=== PATIENT | female | born 1995 | race Caucasian/White ===

== ENCOUNTER 2018-01-10 11:22 | Observation (INO) | payer OTHER ==
--- NOTE | 2018-01-10 12:15 | PDOC ---
History of Present Illness - General Chief Complaint: Pain, Acute Stated Complaint: ABD PAIN Time Seen by Provider: 01/10/18 12:11 - History of Present Illness Initial Comments: 01/10/18 12:14 22 yo F with no significant pmh who p/w epigastria abdominal pain x 2 days. Patient reports acute onset of spasmodic, unremitting, pressure-type epigastric abdominal pain beginning yesterday morning with no identifiable triggers. Denies h/o similar pain. Pain worse with PO intake. Decreased PO intake. Pain not alleviated with OTC baking soda and megan seltzer. Reports h/o rectal bleed x 2 months ago, with subsequent sigmoidoscopy ( unremarkable), and + H.pylori testing. Pt. started on 2 week course of triple therapy, but did not complete medication. Discontinued med use x 3 days ago, felt that she didn't need it because no rectal bleeding. Patient with one day of Amoxicillin 500 mg BID, and Clarithromycin 500 mg BID left. Normal bowel habits. GI apt. next month with Dr. Blum. Patient denies N/V, F,C, CP, SOB, urinary complaints, hematuria, BPR, diarrhea , constipation, lightheadedness, weakness, sensory changes. PMHx: as noted above. H/o appendectomy, and x 2. H/o unremarkable sigmoidoscopy. Denies h/o ACS, stent placement, CABG. Denies h/o endoscopy. ROS: as noted SHx: Denies Etoh, tobacco, IVDA. Allergies: NKDA Dr. Josemanuel Blum GI. Past History - Past Medical History Allergies/Adverse Reactions: Allergies Allergy/AdvReac Type Severity Reaction Status Date / Time No Known Allergies Allergy Verified 01/10/18 11:48 Home Medications: Ambulatory Orders Amox-Tr/K Cl [Augmentin - 875Mg Tablet] 1 tab PO BID #20 tablet 05/04/16 Amox-Tr/K Cl [Augmentin - 875Mg Tablet] 1 tab PO BID #20 tablet 05/04/16 Asthma: Yes (last attack 9 years ago) Cancer: No Cardiac Disorders: No COPD: No Diabetes: No HTN: No Seizures: No Thyroid Disease: No - Surgical History Appendectomy: Yes - Reproductive History (#): 0 Para: 0 - Immunization History Immunization Up to Date: Yes - Suicide/Smoking/Psychosocial Hx Smoking History: Never smoked Have you smoked in the past 12 months: No Number of Cigarettes Smoked Daily: 0 Hx Alcohol Use: No Drug/Substance Use Hx: No Substance Use Type: None Hx Substance Use Treatment: No Review of Systems - Review of Systems Comments:: 01/10/18 12:15 GENERAL/CONSTITUTIONAL: No fever or chills. No weakness. HEAD, EYES, EARS, NOSE AND THROAT: No change in vision. No ear pain or discharge. No sore throat. CARDIOVASCULAR: No chest pain or shortness of breath RESPIRATORY: No cough, wheezing, or hemoptysis. GASTROINTESTINAL: + Abdominal pain. No nausea, vomiting, diarrhea or constipation. GENITOURINARY: No dysuria, frequency, or change in urination. MUSCULOSKELETAL: No joint or muscle swelling or pain. No neck or back pain. SKIN: No rash NEUROLOGIC: No headache, vertigo, loss of consciousness, or change in strength/ sensation. ENDOCRINE: No increased thirst. No abnormal weight change HEMATOLOGIC/LYMPHATIC: No anemia, easy bleeding, or history of blood clots. ALLERGIC/IMMUNOLOGIC: No hives or skin allergy. *Physical Exam - Vital Signs Last Vital Signs Temp Pulse Resp BP Pulse Ox 98.2 F 121 H 18 144/90 100 01/10/18 11:45 01/10/18 11:45 01/10/18 11:45 01/10/18 11:45 01/10/18 11:45 - Physical Exam Comments: 01/10/18 12:15 GENERAL: Awake, alert, and fully oriented, in no acute distress HEAD: No signs of trauma, normocephalic, atraumatic EYES: PERRLA, EOMI, sclera anicteric, conjunctiva clear ENT:Hearing grossly normal, nares patent, oropharynx clear without exudates. Moist mucosa NECK: Normal ROM, supple, no lymphadenopathy, JVD, or masses LUNGS: No distress, speaks full sentences, clear to auscultation bilaterally HEART: Regular rate and rhythm, normal S1 and S2, no murmurs, rubs or gallops, peripheral pulses normal and equal bilaterally. ABDOMEN:+ Abdominal/epigastirc ttp. Soft, normoactive bowel sounds. No guarding, no rebound, no rigidity. No masses. Neg CVA ttp. EXTREMITIES : Normal inspection, Normal range of motion, no edema. No clubbing or cyanosis. ED Treatment Course - LABORATORY CBC & Chemistry Diagram: 01/10/18 12:35 01/10/18 12:35 Medical Decision Making - Medical Decision Making 01/10/18 12:36 22 yo F with no significant pmh who p/w epigastria abdominal pain x 2 days. HR 121, vitals otherwise wnl, AF, A&OX3.+ Epigastria ttp. Will consider esophagitis , gastritis, biliary disease, pancreatitis, gastroenteritis. Low suspicion colitis, diverticulitis, AAA, Ao dissection, ACS/NC. Pain control, hydration, reassess. ED Course: CBC,CMP, HCG, UA, LIPASE Maloox, Carafate, Famotidine, NS 01/10/18 13:50 CBC 01/10/18 14:23 RUQ U/S: 4mm polyp post wall of GB. Otherwise unremarkable Bili 2.6. 0.6~2016 UA: Neg 01/10/18 14:[address] Josemanuel Blum answering service [phone]. Awaiting call back. 01/10/18 15:10 Patient with cont'd pain. Morphine CT AP: 1.9 cm hypdodensity of Spleen likely hemangioma. CTAP otherwise unremarkable 01/10/18 19:[address] Cuevas. Pt. to be seen in AM 01/10/18 20:06 Patient endorsed to medicine team. Admit to Dr. Lord. *DC/Admit/Observation/Transfer Diagnosis at time of Disposition: Epigastric abdominal pain - Discharge Dispostion Condition at time of disposition: Stable - Referrals - Patient Instructions - Post Discharge Activity - Attestations Physician Attestion: 01/10/18 12:15 I attest to the information provided in this note.
[2018-01-10] MEDS ORDERED: MAG HYDROX/AL HYDROX/SIMETH 30 ML UNIT-DOSE CUP PO ONE (12:27)
[2018-01-10] MEDS ORDERED: FAMOTIDINE 20 MG/50 ML IVPB 20 MG/50 ML MG IVPB ONE ×2 (12:27→13:18)
[2018-01-10 12:47] LABS: BASO % 0.7 % (0-2.0); EOS % 0.9 % (0-4.5); HEMATOCRIT 41.4 % (32.4-45.2); HEMOGLOBIN 13.7 GM/dL (10.7-15.3); LYMPH % 25.2 % (8-40); MCHC 33.1 g/dl (32.0-36.0); MEAN CELL VOLUME 90.8 fl (80-96); MEAN PLT VOLUME 8.5 fl (7.5-11.1); MONO % 6.7 % (3.8-10.2); NEUT % 66.5 % (42.8-82.8); PLATELET COUNT 257 K/MM3 (134-434); RBC 4.56 M/mm3 (3.60-5.2); RDW 13.2 % (11.6-15.6); WHITE BLOOD COUNT 5.7 K/mm3 (4.0-10.0)
[2018-01-10] MEDS ORDERED: MAG HYDROX/AL HYDROX/SIMETH 30 ML UNIT-DOSE CUP ONE (13:17)
[2018-01-10] MEDS ORDERED: SUCRALFATE 1 GM TABLET (FP) ONE (13:17)
[2018-01-10 13:36] LABS: ALBUMIN 4.6 g/dl (3.4-5.0); ALK PHOS 64 U/L (45-117); ANION GAP 10 MMOL/L (8-16); BILIRUBIN,TOTAL 2.6 mg/dL (0.2-1); BLOOD UREA NITROGEN 10 mg/dL (7-18); CALCIUM 9.4 mg/dL (8.5-10.1); CHLORIDE 106 mmol/L (98-107); CO2 23 mmol/L (21-32); CREATININE 0.6 mg/dL (0.55-1.3); GLUCOSE,RANDOM 99 mg/dL (74-106); POTASSIUM 3.8 mmol/L (3.5-5.1); SGOT/AST 20 U/L (15-37); SGPT/ALT 40 U/L (13-61); SODIUM 139 mmol/L (136-145); TOT PROT 8.3 g/dl (6.4-8.2)
[2018-01-10 13:57] LABS: LIPASE 155 U/L (73-393)
[2018-01-10 14:18] LABS: URINE APPEARANCE CLEAR; URINE BILIRUBIN NEGATIVE (<2.0 mg/dL); URINE COLOR STRAW; URINE GLUCOSE (UA) NEGATIVE (NEGATIVE); URINE KETONE NEGATIVE (NEGATIVE); URINE LEUK ESTERASE NEGATIVE (NEGATIVE); URINE NITRITE NEGATIVE (NEGATIVE); URINE PROTEIN 1+ (NEGATIVE); URINE UROBILINOGEN NEGATIVE mg/dL (0.2-1.0)
[2018-01-10 14:33] LABS: EPI CELLS RARE /HPF (FEW)
--- NOTE | 2018-01-10 14:57 | PDOC ---
Attending Attestation - Resident Resident Name: Jaskaran Ross - ED Attending Attestation I have performed the following: I have examined & evaluated the patient, The case was reviewed & discussed with the resident, I agree w/resident's findings & plan, Exceptions are as noted - HPI HPI: 01/10/18 16:50 The patient is a 22 year old female, with a significant past medical history of H Pylori (4 months ago s/p sigmoidoscopy), who presents to the emergency department with 2 days of intermittent epigastric pain exacerbated by eating. She states she completed a course of triple antibiotics about a month ago for H.Pylori with the exception of the last dose. No treatments tried. The patient denies chest pain, shortness of breath, headache and dizziness. The patient denies fever, chills, nausea, vomit, diarrhea and constipation. The patient denies dysuria, frequency, urgency and hematuria. No dark stools. Allergies: NKDA Past surgical history: x 2, appendectomy Social history: Denies ETOH. Denies tobacco. - Physicial Exam PE: 01/10/18 16:51 GENERAL: Awake, alert, and fully oriented, in no acute distress EYES: PERRLA, EOMI, sclera anicteric, conjunctiva clear ENT: Oropharynx clear without exudates. Moist mucosa NECK: Normal ROM, supple, no lymphadenopathy, JVD, or masses LUNGS: Breath sounds equal, clear to auscultation bilaterally. No wheezes, and no crackles HEART: Regular rate and rhythm, normal S1 and S2, no murmurs, rubs or gallops ABDOMEN: Soft, +epigastric ttp, negative grimes sign, no distention. Normoactive bowel sounds. No guarding, no rebound. No masses EXTREMITIES: Normal range of motion, no edema. No cords, erythema, or tenderness NEUROLOGICAL: Normal speech, cranial nerves intact, 5/5 strength in all 4 extremities, normal sensation to light touch in all 4 extremities, normal gait SKIN: Warm, Dry, normal turgor, no rashes or lesions noted. - Medical Decision Making 01/10/18 14:11 22yo F hx h.pylori s/p triple therapy presents to the ED with 2 days of intermittent epigastric pain. Vitals wnl. Exam with epigastric ttp. DIBNLT gastritis vs pancreatitis vs cholecystitis vs colitis. Plan for labs, US, pain control, reassess. 01/10/18 15:14 US with GB polyp, no other findings. Labs wnl. UA negative, UPT neg. On reassessment, pt states no improvement in pain, remains tender in epigastric area. At this time decision to get CTAP. Pt given morphine for pain control. Given prolonged LOS, pt placed on ED obs, case discussed with Dr. Ramirez 01/10/18 19:27 CTAP with negative pathology, despite multiple medications including morphine, pt reports persistent pain Only abnormality thus far in work up is elevated bili to 2.6, which is newly elevated compared to 0.6 last year Unclear what is causing this, pt may need ERCP but would be helpful to know if it is direct vs indirect, lab added by hospitalist team Case discussed with Dr. Beck, pt to be evaluated tomorrow Case admitted to hospitalist team for further mgmt Case discussed in detail with admitting physician including history, physical exam and ancillary studies. Admitting physician has assumed care for the patient, will follow all pending diagnostics and will complete the evaluation and treatment.
[2018-01-10] MEDS ORDERED: morphine CARPU-JECT 4 MG/1 ML DISP.SYRIN IVPUSH ONE (15:01)
[2018-01-10] MEDS ORDERED: MORPHINE SULFATE 2 MG/ML VIAL ONE (16:04)
[2018-01-10] MEDS ORDERED: SUCRALFATE 1 GM TABLET (FP) PO ONE ×2 (16:17→22:00)
--- NOTE | 2018-01-10 20:18 | PN ---
Teaching Attending Note Name of Resident: Dinesh Arellano ATTENDING PHYSICIAN STATEMENT I saw and evaluated the patient. I reviewed the resident's note and discussed the case with the resident. I agree with the resident's findings and plan as documented. SUBJECTIVE: Patient is a 22 year old woman with history of preeclampsia, 2 C-sections and appendectomy who presents with epigastric abdominal pain for 2 days. Patient reports acute onset of spasmodic, unremitting, pressure-type epigastric abdominal pain beginning yesterday morning with no identifiable triggers. Pain worse with PO intake. Decreased PO intake. Pain not alleviated with OTC baking soda and megan seltzer. Reports rectal bleed 2 months ago, with subsequent sigmoidoscopy (unremarkable), and + H.pylori testing. Was started on 2 week course of triple therapy, but did not complete medication. Discontinued meds 3 days ago - felt that she didn't need it because no rectal bleeding. Patient with one day of Amoxicillin 500 mg BID, and Clarithromycin 500 mg BID left. Normal bowel habits. GI appointment next month with Dr. Blum. OBJECTIVE: Alert Vital Signs Period Temp Pulse Resp BP Sys/Soler Pulse Ox Last 24 Hr 98.2 F 121 18 144/90 100 HEENT: No Jaundice, eye redness or discharge, PERRLA, EOMI. Normocephalic, atraumatic. External ears are normal and hearing is grossly intact. No nasal discharge. Neck: Supple, nontender. No palpable adenopathy or thyromegaly. No JVD Chest: Good effort. Clear to auscultation and percussion. Heart: Regular. No S3, rub or murmur Abdomen: Not distended, soft, tender epigastrium and no HSM. No rebound or guarding. Normoactive bowel sounds. Ext: Peripheral pulses intact. No leg edema. Skin: Warm and dry. No petechiae, rash or ecchymosis. Neuro: Alert. Oriented x3. CN 2-12 grossly intact. Sensation grossly intact in all four extremities and DTR are symmetric. Home Medications Medication Instructions Recorded Amox-Tr/K Cl [Augmentin - 875Mg 1 tab PO BID #20 tablet 05/04/16 Tablet] Amox-Tr/K Cl [Augmentin - 875Mg 1 tab PO BID #20 tablet 05/04/16 Tablet] Abnormal Lab Results 01/10/18 01/10/18 12:35 14:00 Total Bilirubin 2.6 H Total Protein 8.3 H Ur Specific [place] 1.005 L Urine Protein 1+ H ASSESSMENT AND PLAN: 1. Abdominal Pain - Etiology unclear, but exacerbation by food suggests PUD or gastritis. Elevated bilirubin is unexplained. CT abdomen shows splenic hemangioma and sonogram shows a gall bladder polyp. Will get hepatitis serology , urine toxicology and GI consult to consider EGD. Continue IV D5LR, pain control with IV morphine, give IV protonix, avoid NSAIDS and keep her NPO 2. DVT prophylaxis - Lovenox 40 mg SQ q 24 hours. 3. Advance directives - Full code
[2018-01-10] MEDS ORDERED: ACETAMINOPHEN 325 MG TABLET (FP) PO PRN (20:54)
--- NOTE | 2018-01-10 21:08 | HP ---
CHIEF COMPLAINT: Abdominal Pain PCP: GI: Dr. Blum HISTORY OF PRESENT ILLNESS: 22 yo female with PMH Asthma and Preeclampsia during her admitted with complaint of epigastric abdominal pain. She states that the pain began yesterday afternoon and has been fairly constant since then. The pain does not radiate. She states that nothing relieves the pain, she tried megan-seltzer at home. The pain is worsened following PO intake, and thus she is minimally tolerating PO presently. She has never had any pain like this before, but of note she did have some episodes of rectal bleeding two months ago and was seen by Dr. Blum as an outpatient. A sigmoidoscopy was done which did not reveal any pathology at that time. She was found to be H. pylori positive and was given triple therapy which she took for 2 weeks, which she states she completed around 3 or 4 weeks ago. Since that time she has had no further episodes of rectal bleeding and has not had any abdominal pain until this episode began yesterday afternoon. She denies any fevers, chills, vomiting, constipation, Urinary frequency, hematuria, or dysuria. Of note she does endorse some loose stools recently which she attributes to her recent antibiotic use, though she did have one episode of loose stool today and has not taken abx in at least 3 weeks. ER course was notable for: (1) CT and US with no signs of pancreatitis or cholecystitis (2) Morphine (4mg + 2 mg), Carafate, Mylanta, pepcid, with no relief (3) GI consulted Recent Travel: none PAST MEDICAL HISTORY: Asthma - last inhaler use at least 3 months ago Preeclampsia during PAST SURGICAL HISTORY: Appendectomy X 2, one living child, one Social History: Smoking: Denies Alcohol: Denies Drugs: Denies Family History: Allergies No Known Allergies Allergy (Verified 01/10/18 11:48) HOME MEDICATIONS: Home Medications Medication Instructions Recorded Amox-Tr/K Cl [Augmentin - 875Mg 1 tab PO BID #20 tablet 05/04/16 Tablet] Amox-Tr/K Cl [Augmentin - 875Mg 1 tab PO BID #20 tablet 05/04/16 Tablet] REVIEW OF SYSTEMS CONSTITUTIONAL: Absent: fever, chills, diaphoresis, generalized weakness, malaise, loss of appetite, weight change HEENT: Absent: rhinorrhea, nasal congestion, throat pain, throat swelling, difficulty swallowing, mouth swelling, ear pain, eye pain, visual changes CARDIOVASCULAR: Absent: chest pain, syncope, palpitations, irregular heart rate, lightheadedness , peripheral edema RESPIRATORY: Absent: cough, shortness of breath, dyspnea with exertion, orthopnea, wheezing, stridor, hemoptysis GASTROINTESTINAL: abdominal pain, diarrhea Absent: , abdominal distension, nausea, vomiting, constipation, melena, hematochezia GENITOURINARY: Absent: dysuria, frequency, urgency, hesitancy, hematuria, flank pain, genital pain MUSCULOSKELETAL: Absent: myalgia, arthralgia, joint swelling, back pain, neck pain SKIN: Absent: rash, itching, pallor HEMATOLOGIC/IMMUNOLOGIC: Absent: easy bleeding, easy bruising, lymphadenopathy, frequent infections ENDOCRINE: Absent: unexplained weight gain, unexplained weight loss, heat intolerance, cold intolerance NEUROLOGIC: Absent: headache, focal weakness or paresthesias, dizziness, unsteady gait, seizure, mental status changes, bladder or bowel incontinence PSYCHIATRIC: Absent: anxiety, depression, suicidal or homicidal ideation, hallucinations. PHYSICAL EXAMINATION Vital Signs - 24 hr 01/10/18 01/10/18 01/10/18 11:45 17:15 20:40 Temperature 98.2 F 97.8 F 97.9 F Pulse Rate 121 H Pulse Rate [ 65 67 Right Radial] Respiratory 18 18 18 Rate Blood Pressure 144/90 Blood Pressure 126/71 122/66 [Right Arm] O2 Sat by Pulse 100 100 100 Oximetry (%) GENERAL: A&O, no acute distress HEAD: Normocephalic, atraumatic. EYES: PERRL, no scleral icterus EARS, NOSE, THROAT: oropharynx clear without exudates. Moist mucous membranes. NECK: supple without lymphadenopathy LUNGS: CTA b/l, no crackles or wheezes HEART: Regular rate and rhythm, normal S1 and S2 without murmur ABDOMEN: Soft, tender to palpation in the epigastric region, normoactive bowel sounds MUSCULOSKELETAL: No bony deformities or tenderness. EXTREMITIES: 2+ pulses, warm, well-perfused. No peripheral edema. NEUROLOGICAL: Cranial nerves II-XII grossly intact. Normal speech. PSYCHIATRIC: Cooperative. Good eye contact. Appropriate mood and affect. Laboratory Results - last 24 hr 01/10/18 01/10/18 01/10/18 12:35 12:35 12:35 WBC 5.7 RBC 4.56 Hgb 13.7 Hct 41.4 D MCV 90.8 MCH 30.0 MCHC 33.1 RDW 13.2 D Plt Count 257 MPV 8.5 Absolute Neuts (auto) 3.8 Neutrophils % 66.5 Lymphocytes % 25.2 D Monocytes % 6.7 Eosinophils % 0.9 D Basophils % 0.7 Nucleated RBC % 0 Sodium 139 Potassium 3.8 Chloride 106 Carbon Dioxide 23 Anion Gap 10 BUN 10 Creatinine 0.6 Creat Clearance w eGFR > 60 Random Glucose 99 Calcium 9.4 Total Bilirubin 2.6 H AST 20 ALT 40 Alkaline Phosphatase 64 Total Protein 8.3 H Albumin 4.6 Lipase 155 Cancelled Urine Color Urine Appearance Urine pH Ur Specific [place] Urine Protein Urine Glucose (UA) Urine Ketones Urine Blood Urine Nitrite Urine Bilirubin Urine Urobilinogen Ur Leukocyte Esterase Urine WBC (Auto) Urine RBC (Auto) Ur Epithelial Cells Urine HCG, Qual 01/10/18 01/10/18 14:00 14:00 WBC RBC Hgb Hct MCV MCH MCHC RDW Plt Count MPV Absolute Neuts (auto) Neutrophils % Lymphocytes % Monocytes % Eosinophils % Basophils % Nucleated RBC % Sodium Potassium Chloride Carbon Dioxide Anion Gap BUN Creatinine Creat Clearance w eGFR Random Glucose Calcium Total Bilirubin AST ALT Alkaline Phosphatase Total Protein Albumin Lipase Urine Color Straw Urine Appearance Clear Urine pH 6.0 Ur Specific [place] 1.005 L Urine Protein 1+ H Urine Glucose (UA) Negative Urine Ketones Negative Urine Blood Negative Urine Nitrite Negative Urine Bilirubin Negative Urine Urobilinogen Negative Ur Leukocyte Esterase Negative Urine WBC (Auto) 1 Urine RBC (Auto) <1 Ur Epithelial Cells Rare Urine HCG, Qual Negative ASSESSMENT/PLAN: 22 yo female with PMH Asthma and Preeclampsia during her admitted with complaint of unrelenting epigastric abdominal pain. Abdominal Pain -recent H. pylori infxn noted, could possibly be new or worsening gastric ulcer -ED course noted, morphine, carafate, mylanta, pepcid without relief -CT and US noted. 1.9 cm hypodensity likely hemangioma on her spleen, 2.2 cm cyst on Left ovary, no signs of cholecystitis or pancreatitis -GI consulted, will await further recommendations -Tbili elevated 2.6 -Direct bili ordered -Hepatitis panel -Urine Tox -Pt will likely need EGD -Morphine 2mg IV Q4 PRN -Tylenol 650 mg PO Q6 PRN -Avoid NSAIDs -Incentive spirometry -NPO except meds, can advance tolerated pending GI evaluation Asthma -Stable, very rarely requires rescue inhaler DVT Prophylaxis -Lovenox 40 mg SQ Daily FEN -Fluids: D5LR @ 100 cc/hr -Electrolytes: BMP in AM -Nutrition: NPO Disposition Observation Visit type - Emergency Visit Emergency Visit: Yes ED Registration Date: 01/10/18 Care time: The patient presented to the Emergency Department on the above date and was hospitalized for further evaluation of their emergent condition. - New Patient This patient is new to me today: Yes Date on this admission: 01/11/18 - Critical Care Critical Care patient: No
[2018-01-10] MEDS ORDERED: PANTOPRAZOLE 40 MG TABLET (FP) PO ONE (21:35)
[2018-01-10] MEDS: DEXTROSE 5%-LACTATED RINGERS 1,000 ML IV SCH (23:28)
[2018-01-11 00:44] VITALS: BMI 23.0
[2018-01-11] MEDS: MORPHINE SULFATE 2 MG/ML VIAL IVPUSH PRN ×2 (02:33→06:49)
[2018-01-11 02:34] VITALS: TEMP 98
[2018-01-11 07:28] LABS: HEMATOCRIT 37.1 % (32.4-45.2); HEMOGLOBIN 12.4 GM/dL (10.7-15.3); MCH 30.3 pg (25.7-33.7); MCHC 33.4 g/dl (32.0-36.0); MEAN CELL VOLUME 90.8 fl (80-96); MEAN PLT VOLUME 8.8 fl (7.5-11.1); PLATELET COUNT 238 K/MM3 (134-434); RBC 4.08 M/mm3 (3.60-5.2); WHITE BLOOD COUNT 6.3 K/mm3 (4.0-10.0)
[2018-01-11 08:57] LABS: ALBUMIN 3.8 g/dl (3.4-5.0); ALK PHOS 52 U/L (45-117); ANION GAP 9 MMOL/L (8-16); BLOOD UREA NITROGEN 9 mg/dL (7-18); CALCIUM 8.4 mg/dL (8.5-10.1); CHLORIDE 105 mmol/L (98-107); CO2 24 mmol/L (21-32); CREATININE 0.5 mg/dL (0.55-1.3); GLUCOSE,RANDOM 96 mg/dL (74-106); MAGNESIUM 2.3 mg/dL (1.8-2.4); PHOSPHOROUS 4.2 mg/dL (2.5-4.9); POTASSIUM 3.6 mmol/L (3.5-5.1); SGOT/AST 16 U/L (15-37); SGPT/ALT 33 U/L (13-61); SODIUM 138 mmol/L (136-145); TOT PROT 6.9 g/dl (6.4-8.2)
[2018-01-11] MEDS ORDERED: MAG HYDROX/AL HYDROX/SIMETH 30 ML UNIT-DOSE CUP PO PRN (08:58)
[2018-01-11] MEDS ORDERED: ACETAMINOPHEN 1000 MG/100 ML VIAL (NON FORMULARY) IVPB PRN (08:59)
[2018-01-11 09:33] LABS: BILIRUBIN,DIRECT 0.2 mg/dL (0.0-0.2)
[2018-01-11] MEDS: DEXTROSE 5%-LACTATED RINGERS 1,000 ML IV SCH (09:44)
[2018-01-11] MEDS ORDERED: PANTOPRAZOLE SODIUM 40 MG VIAL IVPUSH SCH (10:00)
[2018-01-11] MEDS ORDERED: PANTOPRAZOLE 40 MG TABLET (FP) PO SCH (10:00)
[2018-01-11] MEDS ORDERED: ENOXAPARIN NA (PORCINE) 40 MG/0.4 ML DISP.SYRIN SQ SCH (10:00)
--- NOTE | 2018-01-11 12:19 | CON.GI ---
Consult Consult Specialty:: Gastroenterology Referred by:: Dr Dinesh Arellano Reason for Consultation:: Abdominal pain - History of Present Illness Chief Complaint: Periumbilical pain History of Present Illness: 22F has been having abdominal pain for several weeks,. She was evaluated by my partner Dr. Blum who performed a flexible sigmoidoscopy on 11/23/17 which was normal. He treated for for H. pylori. She felt better while taking this antiobiotic regimen which she completed with the exception of the last 2 doses about a week ago. On 01/09 she developed a colicky but dull periumbilical pain. Her LMP was about 2 weeks ago. The pain was aggravated by drinking water and also when she got a morphine injection. The pain has resolved and she is hungry. Her CT scan reveals a small amount of fluid in three cul de sac with an involuting left ovarian cyst It also reveals a GB polyp but no ductal dilation. A possible splenic hemangioma is noted. She has an indirect hyperbilirubinemia. She denies any h/o liver disease but was transfused after her first C section. She had a C section in 08/08 but the child shortly thereafter with trisome 13. She denies fever, diarrhea, chills or vomiting. - History Source History Provided By: Patient Limitations to Obtaining History: No Limitations - Past Medical History Cardio/Vascular: Yes: Hyperlipdemia (hypertriglyceridemia) Pulmonary: Yes: Asthma Hepatobiliary: Yes: Other (GB polyp) ...LMP: 12/17/17 ...: No - Past Surgical History Past Surgical History: Yes: Appendectomy (Open appendectomy, 5 yrs old), C- Section (x 2) - Alcohol/Substance Use Hx Alcohol Use: No History of Substance Use: reports: None - Smoking History Smoking history: Never smoked Have you smoked in the past 12 months: No Aproximately how many cigarettes per day: 0 - Social History Usual Living Arrangement: With Spouse ADL: Independent Occupation: housewife Place of : Other ([place]) Came to [place] (year): age 5 Home Medications - Allergies Allergies/Adverse Reactions: Allergies Allergy/AdvReac Type Severity Reaction Status Date / Time No Known Allergies Allergy Verified 01/10/18 11:48 - Home Medications Home Medications: Ambulatory Orders Amox-Tr/K Cl [Augmentin - 875Mg Tablet] 1 tab PO BID #20 tablet 05/04/16 Amox-Tr/K Cl [Augmentin - 875Mg Tablet] 1 tab PO BID #20 tablet 05/04/16 Family Disease History - Family Disease History Family Disease History: Other: Father (healthy), Mother (healthy) Review of Systems - Review of Systems Constitutional: reports: Weakness Eyes: reports: No Symptoms HENT: reports: No Symptoms Neck: reports: No Symptoms Cardiovascular: reports: No Symptoms Respiratory: reports: No Symptoms Gastrointestinal: reports: Abdominal Pain Genitourinary: reports: No Symptoms Physical Exam-GI Vital Signs: Vital Signs Temperature 98.0 F 01/11/18 06:00 Pulse Rate 76 01/11/18 06:00 Respiratory Rate 18 01/11/18 06:00 Blood Pressure 105/52 L 01/11/18 06:00 O2 Sat by Pulse Oximetry (%) 100 01/10/18 23:00 CBC,CMP WBC 6.3 K/mm3 (4.0-10.0) 01/11/18 06:30 RBC 4.08 M/mm3 (3.60-5.2) 01/11/18 06:30 Hgb 12.4 GM/dL (10.7-15.3) 01/11/18 06:30 Hct 37.1 % (32.4-45.2) 01/11/18 06:30 MCV 90.8 fl (80-96) 01/11/18 06:30 MCH 30.3 pg (25.7-33.7) 01/11/18 06:30 MCHC 33.4 g/dl (32.0-36.0) 01/11/18 06:30 RDW 13.0 % (11.6-15.6) 01/11/18 06:30 Plt Count 238 K/MM3 (134-434) 01/11/18 06:30 MPV 8.8 fl (7.5-11.1) 01/11/18 06:30 Absolute Neuts (auto) 3.8 K/mm3 (1.5-8.0) 01/10/18 12:35 Neutrophils % 66.5 % (42.8-82.8) 01/10/18 12:35 Lymphocytes % 25.2 % (8-40) D 01/10/18 12:35 Monocytes % 6.7 % (3.8-10.2) 01/10/18 12:35 Eosinophils % 0.9 % (0-4.5) D 01/10/18 12:35 Basophils % 0.7 % (0-2.0) 01/10/18 12:35 Nucleated RBC % 0 % (0-0) 01/10/18 12:35 Sodium 138 mmol/L (136-145) 01/11/18 06:30 Potassium 3.6 mmol/L (3.5-5.1) 01/11/18 06:30 Chloride 105 mmol/L (98-107) 01/11/18 06:30 Carbon Dioxide 24 mmol/L (21-32) 01/11/18 06:30 Anion Gap 9 MMOL/L (8-16) 01/11/18 06:30 BUN 9 mg/dL (7-18) 01/11/18 06:30 Creatinine 0.5 mg/dL (0.55-1.3) L 01/11/18 06:30 Creat Clearance w eGFR > 60 (>60) 01/11/18 06:30 Random Glucose 96 mg/dL (74-106) 01/11/18 06:30 Calcium 8.4 mg/dL (8.5-10.1) L 01/11/18 06:30 Phosphorus 4.2 mg/dL (2.5-4.9) 01/11/18 06:30 Magnesium 2.3 mg/dL (1.8-2.4) 01/11/18 06:30 Total Bilirubin 3.0 mg/dL (0.2-1) H 01/11/18 06:30 Direct Bilirubin 0.2 mg/dL (0.0-0.2) 01/11/18 06:30 AST 16 U/L (15-37) 01/11/18 06:30 ALT 33 U/L (13-61) 01/11/18 06:30 Alkaline Phosphatase 52 U/L (45-117) 01/11/18 06:30 Total Protein 6.9 g/dl (6.4-8.2) 01/11/18 06:30 Albumin 3.8 g/dl (3.4-5.0) 01/11/18 06:30 Lipase 155 U/L (73-393) 01/10/18 12:35 Current Medications Generic Name Dose Route Start Last Admin Trade Name Freq PRN Reason Stop Dose Admin Acetaminophen 1,000 mg 01/11/18 08:59 Ofirmev Injection - IVPB Q6H PRN PAIN Al Hydroxide/Mg Hydroxide 30 ml 01/11/18 08:58 Mylanta Oral Suspension - PO Q6H PRN DYSPEPSIA Enoxaparin Sodium 40 mg 01/11/18 10:00 Lovenox - SQ DAILY NERIS Dextrose/Lactated Ringer's 1,000 mls @ 100 mls/hr 01/10/18 21:15 01/11/18 09: 44 D5-Lr - IV 100 mls/hr ASDIR NERIS Administration Pantoprazole Sodium 40 mg 01/11/18 10:00 01/11/18 09:31 Protonix Iv IVPUSH 40 mg BID NERIS Administration Constitutional: Yes: Calm Eyes: Yes: Sclera Icterus HENT: Yes: Normocephalic Neck: Yes: Supple Cardiovascular: Yes: Regular Rate and Rhythm Respiratory: Yes: CTA Bilaterally Gastrointestinal Inspection: Yes: Scars (healed transverse RLQ and Pfannensteil incisions) ...Auscultate: Yes: Normoactive Bowel Sounds ...Palpate: Yes: Soft, Other (nontender) ...Rectal Exam: Yes: Deferred (had recent flex sig) Edema: No Peripheral Pulses WNL: Yes Neurological: Yes: Alert, Oriented Labs: CBC, BMP 01/11/18 06:30 01/11/18 06:30 Imaging - Results Cat Scan: Report Reviewed (Leah Lucía Name: BETT[facility] MCINTYRE DEPARTMENT OF RADIOLOGY Phys: Kennedi Welch MD : 1995 Age: 22 Sex: F [facility] Acct: [id number] Loc: [address] Exam Date: 01/10/18 Status: [place] [address] Unit Number: [id number] EXAM#: TYPE/EXAM : RESULT: [id number] CT/ABDOMEN PELVIS CT WITH CONTR HISTORY PROVIDED: Epigastric pain. Sequential axial images were obtained from the domes of the diaphragms through the symphysis pubis following the administration of intravenous contrast material. The lung bases are clear. The liver, spleen, pancreas, adrenal glands and kidneys demonstrate no significant abnormalities. There is a 1.9 cm hypodensity within the anterior portion of the upper pole of the spleen. This exhibits attenuation characteristics higher than a simple cyst and may represent a hemangioma. There is a tiny hyperdensity within the gallbladder. This does correspond to the polyp noted on a recent sonogram. There is no evidence of intra-abdominal or retroperitoneal lymphadenopathy or fluid collections. There is no evidence of pneumoperitoneum, bowel obstruction or intra-abdominal abscess. There is no CT evidence of acute appendicitis or diverticulitis. Examination of the pelvis demonstrates a 2.2 cm involuting cyst of the left ovary. Free fluid is identified within the cul-de-sac. The uterus is retroverted. There is no evidence of acute bony abnormalities. No evidence of pelvic masses, fluid collections or lymphadenopathy. IMPRESSION: 1. 1.9 cm splenic hypodensity possibly representing a hemangioma. 2. 2.2 cm involuting cyst of the left ovary with free pelvic fluid. 3. No evidence of acute pathology within the abdomen or pelvis. Please see above discussion. Reported By : Eleuterio Kerr MD 01/10/181856 Technologist: Gerald Haley Transcribed Date/Time: 01/10/181856 Authorization Nurse: Eleuterio Kerr Printed Date/Time : By: Signed by: Eleuterio Kerr Signed on: 10-Jan-2018 18:58) Problem List - Problems (1) Epigastric abdominal pain Assessment/Plan: I believe that Bettie's pain reflects Mittelschmerz based on the CT findings. Her pain has resolved. If she tolerates her diet she can be discharged. Given that she has a more chronic pain I have advised her to contact our office to arrange an EGD. Would discharge on a PPI empirically. Code(s): R10.13 - EPIGASTRIC PAIN (2) Gallbladder polyp Code(s): K82.4 - CHOLESTEROLOSIS OF GALLBLADDER (3) Mittelschmerz Code(s): N94.0 - MITTELSCHMERZ (4) History of Helicobacter pylori infection Code(s): Z86.19 - PERSONAL HISTORY OF OTHER INFECTIOUS AND PARASITIC DISEASES Assessment/Plan Mittelschmerz resolved If diet is tolerated can discharge on PPI Will arrange EGD with our office
--- NOTE | 2018-01-11 14:57 | PN ---
Teaching Attending Note Name of Resident: Jolie Rincon ATTENDING PHYSICIAN STATEMENT I saw and evaluated the patient. I reviewed the resident's note and discussed the case with the resident. I agree with the resident's findings and plan as documented with exceptions below. SUBJECTIVE: Patient seen and examined, abdominal pain resolved, tolerated lunch well ( hamburger). No nausea, vomiting/diarrhea noted. OBJECTIVE: Vital Signs Period Temp Pulse Resp BP Sys/Soler Pulse Ox Last 24 Hr 97.8 F-98.0 F 65-76 18-18 101-126/52-71 100-100 Intake & Output 01/08/18 01/09/18 01/10/18 01/11/18 23:59 23:59 23:59 23:59 Intake Total 715 Balance 715 Weight 130 lb 130 lb General: sitting in bed in no acute distress Chest: CTAB, no rales or wheezing Abdomen:soft, NT, ND, positive bowel sounds, no epigastric tenderness noted Extremities: no edema Home Medications Medication Instructions Recorded Amox-Tr/K Cl [Augmentin 875-125mg 1 tab PO BID #20 tablet 05/04/16 Tablet -] Pantoprazole Sodium [Protonix -] 40 mg PO DAILY 30 Days #30 01/11/18 tablet.ec Laboratory Results - last 24 hr 01/10/18 01/11/18 01/11/18 20:35 06:30 06:30 WBC 6.3 RBC 4.08 Hgb 12.4 Hct 37.1 MCV 90.8 MCH 30.3 MCHC 33.4 RDW 13.0 Plt Count 238 MPV 8.8 Sodium 138 Potassium 3.6 Chloride 105 Carbon Dioxide 24 Anion Gap 9 BUN 9 Creatinine 0.5 L Creat Clearance w eGFR > 60 Random Glucose 96 Calcium 8.4 L Phosphorus 4.2 Magnesium 2.3 Total Bilirubin 3.0 H Direct Bilirubin 0.4 H 0.2 AST 16 ALT 33 Alkaline Phosphatase 52 Total Protein 6.9 Albumin 3.8 ASSESSMENT AND PLAN: 22 yof with PMHx of asthma, pre-eclampsia, H. Pylori gastritis admitted with abdominal pain -Abdominal pain, gastritis vs ?mittleschmerz, low suspicion for PUD or concerning etiologygiven recent reported EGD -h/o H. Pylori gastritis Plan: GI input noted. Tolerated lunch (hamburger) d/c on protonix with outpatient follow up with Dr. Blum. Plan discussed with patient in detail, all questions answered.
[2018-01-11 15:33] VITALS: BP 130/74; PULSE 91
--- NOTE | 2018-01-11 15:40 | EKG ---
Test Reason : Blood Pressure : / mmHG Vent. Rate : 072 BPM Atrial Rate : 072 BPM P-R Int : 122 ms QRS Dur : 092 ms QT Int : 400 ms P-R-T Axes : 024 029 015 degrees QTc Int : 438 ms NORMAL SINUS RHYTHM INCOMPLETE RIGHT BUNDLE BRANCH BLOCK BORDERLINE ECG WHEN COMPARED WITH ECG OF 04-MAY-2016 19:48, VENT. RATE HAS DECREASED BY 50 BPM INCOMPLETE RIGHT BUNDLE BRANCH BLOCK IS NOW PRESENT Confirmed by KG ACEVEDO, ASHLEIGH ([id number]) on 01/11/2018 3:40:42 PM Referred By: Confirmed By:ASHLEIGH SAUL MD
--- NOTE | 2018-01-11 17:35 | DS ---
Physical Exam: SUBJECTIVE: Patient seen and examined OBJECTIVE: Vital Signs Period Temp Pulse Resp BP Sys/Soler Pulse Ox Last 24 Hr 97.9 F-98.0 F 67-91 18-18 101-130/52-74 100-100 PHYSICAL EXAM GENERAL: The patient is awake, alert, and fully oriented, in no acute distress. HEAD: Normal with no signs of trauma. EYES: PERRL, extraocular movements intact, sclera anicteric, conjunctiva clear. ENT: Ears normal, nares patent, oropharynx clear without exudates, moist mucous membranes. NECK: Trachea midline, full range of motion, supple. LUNGS: Breath sounds equal, clear to auscultation bilaterally, no wheezes, no crackles, no accessory muscle use. HEART: Regular rate and rhythm, S1, S2 without murmur, rub or gallop. ABDOMEN: Soft, nontender, nondistended, normoactive bowel sounds, no guarding, no rebound, no hepatosplenomegaly, no masses. EXTREMITIES: 2+ pulses, warm, well-perfused, no edema. NEUROLOGICAL: Cranial nerves II through XII grossly intact. Normal speech, gait not observed. PSYCH: Normal mood, normal affect. SKIN: Warm, dry, normal turgor, no rashes or lesions noted. LABS Laboratory Results - last 24 hr 01/10/18 01/11/18 01/11/18 20:35 06:30 06:30 WBC 6.3 RBC 4.08 Hgb 12.4 Hct 37.1 MCV 90.8 MCH 30.3 MCHC 33.4 RDW 13.0 Plt Count 238 MPV 8.8 Sodium 138 Potassium 3.6 Chloride 105 Carbon Dioxide 24 Anion Gap 9 BUN 9 Creatinine 0.5 L Creat Clearance w eGFR > 60 Random Glucose 96 Calcium 8.4 L Phosphorus 4.2 Magnesium 2.3 Total Bilirubin 3.0 H Direct Bilirubin 0.4 H 0.2 AST 16 ALT 33 Alkaline Phosphatase 52 Total Protein 6.9 Albumin 3.8 HOSPITAL COURSE: Date of Admission:01/10/18 22 yo female with history of H pylori GERD and preeclampsia was admitted for abdominal pain. she states she had been having worsening abdominal pain for about a week with associated nausea and vomiting. she had been seen dr terrazas in the [facility] who did an EGD whihch showed H pylori and she had recently finished that antibiotic treatment a few ays prior to admission. she was given protonix and clear liquids and seen by dr cuevas who didnt think another EGD was needed and to follow up with him as an outpatient for further workup. she tolerated diet and was sent home wiht protonix and GI follow up Date of Discharge: 01/11/18 Minutes to complete discharge: 39 Discharge Summary Reason For Visit: EPIGASTRIC PAIN Current Active Problems Epigastric abdominal pain (Acute) Gallbladder polyp (Acute) History of Helicobacter pylori infection (Acute) Mittelschmerz (Acute) Condition: Stable - Instructions Diet, Activity, Other Instructions: You came to the emergency room with worsening belly pain and diarrhea. Please resume all of your home medications in addition: -please take the medication, Pantoprazole 40mg, daily Referrals: -we advise that you follow up with your primary care physician in one week -we advise that you follow up with the Rail Technician, Dr Cuevas, within one to two weeks to discuss further plan and endoscopy. Advise small meals at frequent intervals, avoid eating 2 hours before going to bed, avoid alcohol/spicy foods/excessive caffeine. Try to keep head end of bed elevated. *if you begin to experience continued abdominal pain, vomiting, chest pain, shortness of breath or any new concerns, please return to the emergency room immediately Referrals: Juanjose Cuevas MD [Staff Physician] - Saroj Barajas MD [Primary Care Provider] - Disposition: HOME - Home Medications Comprehensive Discharge Medication List: Ambulatory Orders Amox-Tr/K Cl [Augmentin 875-125mg Tablet -] 1 tab PO BID #20 tablet 05/04/16 Pantoprazole Sodium [Protonix -] 40 mg PO DAILY 30 Days #30 tablet.ec 01/11/18 This patient is new to me today: No Emergency Visit: Yes ED Registration Date: 01/10/18 Care time: The patient presented to the Emergency Department on the above date and was hospitalized for further evaluation of their emergent condition. Critical Care patient: No - Discharge Referral Referred to [facility] No
[2018-01-12 06:06] LABS: HEP.C VIRUS AB <0.1 s/co ratio (0.0-0.9)
--- NOTE | 2018-04-07 15:06 | EKG ---
Test Reason : Blood Pressure : / mmHG Vent. Rate : 107 BPM Atrial Rate : 107 BPM P-R Int : 136 ms QRS Dur : 090 ms QT Int : 352 ms P-R-T Axes : 053 033 004 degrees QTc Int : 469 ms SINUS TACHYCARDIA NON-SPECIFIC INTRA-VENTRICULAR CONDUCTION DELAY NONSPECIFIC ST ABNORMALITY WHEN COMPARED WITH ECG OF 04-MAY-2016 19:48, NO SIGNIFICANT CHANGE WAS FOUND Confirmed by NATAN SKY MD ([id number]) on 04/07/2018 3:05:50 PM Referred By: Confirmed By:NATAN SKY MD
== END 2018-01-11 17:49 | disposition home or self-care (01) ==
LOC: JER 11:22 → JERBED 15:06 → J8W 21:52
PROVIDERS: ADMIT Internal Medicine; ATTEND Hospitalist
PROC: 3E033NZ Introduction of Analgesics, Hypnotics, Sedatives into Peripheral Vein, Percutaneous Approach (ICD-10-PCS; principal; 2018-01-10)
PROC: 3E033GC Introduction of Other Therapeutic Substance into Peripheral Vein, Percutaneous Approach (ICD-10-PCS; 2018-01-10)
DX: R10.13 Epigastric pain (principal); K82.4 Cholesterolosis of gallbladder; N94.0 Mittelschmerz; Z86.19 Personal history of other infectious and parasitic diseases; J45.909 Unspecified asthma, uncomplicated
CPT/HCPCS: 36415; 74177-TC; 76705-TC; 80053; 80074; 81003; 81015; 82248; 83690; 83735; 84100; 84703; 85025; 85027; 93005; 93010; 96365; 96375; 96376; 99285-25; G0378

== ENCOUNTER 2023-05-26 18:39 | Emergency (ER) | payer OTHER ==
[2023-05-26 18:52] VITALS: BP 125/76; RESP 19; TEMP 98.5; BMI 23.8
[2023-05-26] MEDS ORDERED: ACETAMINOPHEN INJECTION 100 ML IVPB ONE (19:50)
[2023-05-26] MEDS ORDERED: KETOROLAC TROMETHAMINE 30 MG/1 ML VIAL ONE (19:51)
[2023-05-26] MEDS: ACETAMINOPHEN 1000 MG/100 ML BAG IVPB ONE (20:00)
[2023-05-26] MEDS: SODIUM CHLORIDE 0.9% 500 ML INFUS.BAG IV ONE (20:00)
[2023-05-26] MEDS: KETOROLAC TROMETHAMINE 30 MG/1 ML VIAL IVPUSH ONE (20:01)
[2023-05-26 20:04] LABS: BASO % 0.3 % (0-2.0); EOS % 0.8 % (0-4.5); HEMATOCRIT 39.1 % (32.4-45.2); HEMOGLOBIN 13.5 GM/dL (10.7-15.3); MCH 32.7 pg (25.7-33.7); MCHC 34.4 g/dl (32.0-36.0); MEAN PLT VOLUME 8.4 fl (7.5-11.1); MONO % 7.6 % (3.8-10.2); NEUT % 68.3 % (42.8-82.8); PLATELET COUNT 253 10^3/uL (134-434); RBC 4.12 M/mm3 (3.60-5.2); RDW 12.7 % (11.6-15.6); WHITE BLOOD COUNT 8.6 K/mm3 (4.0-10.0)
[2023-05-26 20:10] LABS: POTASSIUM 3.6 mmol/L (3.5-5.1)
[2023-05-26 20:13] LABS: ALBUMIN 4.4 g/dl (3.4-5.0); BLOOD UREA NITROGEN 18.2 mg/dL (7-18); MAGNESIUM 2.3 mg/dL (1.8-2.4)
[2023-05-26 20:16] LABS: CREATININE 0.9 mg/dL (0.55-1.3)
[2023-05-26 20:18] LABS: BILIRUBIN,TOTAL 1.8 mg/dL (0.2-1); TOT PROT 8.1 g/dl (6.4-8.2)
[2023-05-26 20:57] LABS: PH,URINE 5.5 (5.0-8.0); URINE APPEARANCE CLEAR; URINE BILIRUBIN NEGATIVE (NEGATIVE); URINE COLOR YELLOW; URINE GLUCOSE (UA) NEGATIVE (NEGATIVE); URINE KETONE NEGATIVE (NEGATIVE); URINE LEUK ESTERASE NEGATIVE (NEGATIVE); URINE NITRITE NEGATIVE (NEGATIVE); URINE PROTEIN NEGATIVE (NEGATIVE); URINE UROBILINOGEN 0.2 mg/dL (0.2-1.0)
[2023-05-26 21:30] VITALS: PULSE 87
== END 2023-05-26 21:32 | disposition home or self-care (01) ==
LOC: JER 18:39
PROC: 3E030NZ Introduction of Analgesics, Hypnotics, Sedatives into Peripheral Vein, Open Approach (ICD-10-PCS; principal; 2023-05-26)
PROC: 3E0303Z Introduction of Anti-inflammatory into Peripheral Vein, Open Approach (ICD-10-PCS; 2023-05-26)
DX: R51.9 Headache, unspecified (principal); R68.83 Chills (without fever); Z20.822 Contact with and (suspected) exposure to COVID-19
CPT/HCPCS: 0241U-QW; 36415; 70450-TC; 80053; 81003; 83735; 84439; 84443; 84703; 85025; 87086; 99284-25; J0131

== ENCOUNTER 2024-09-11 10:18 | Emergency (ER) | payer OTHER ==
[2024-09-11 10:32] VITALS: BP 117/75; PULSE 100; RESP 16; TEMP 98.1; BMI 25.6
[2024-09-11] MEDS ORDERED: KETOROLAC TROMETHAMINE 15 MG/ML VIAL ONE (12:05)
[2024-09-11] MEDS ORDERED: ACETAMINOPHEN 325 MG TABLET (FP) ONE (12:05)
[2024-09-11] MEDS: KETOROLAC TROMETHAMINE 15 MG/ML VIAL IM ONE (12:18)
[2024-09-11] MEDS: ACETAMINOPHEN 325 MG TABLET (FP) PO ONE (12:18)
== END 2024-09-11 13:20 | disposition home or self-care (01) ==
LOC: JER 10:18 → JERFT 10:18
PROC: 3E0233Z Introduction of Anti-inflammatory into Muscle, Percutaneous Approach (ICD-10-PCS; principal; 2024-09-11)
DX: M79.661 Pain in right lower leg (principal); M79.662 Pain in left lower leg
CPT/HCPCS: 96372; 99284-25